=== PATIENT | female | born 1960 | race Caucasian/White ===

== ENCOUNTER → 2017-02-13 | Outpatient (CLI) | payer OTHER ==
[~2017-02-13] MED LIST: CLARITIN 1010 MG/TAB PO; EPA FISH OIL1000 MG PO; TENORMIN 2525 MG/TAB PO
== END ==
LOC: MC.RAD 07:52
DX: Z12.31 Encounter for screening mammogram for malignant neoplasm of breast (principal)

== ENCOUNTER 2017-10-11 13:30 | Day surgery (SDC) | payer OTHER ==
[~2017-10-11] VITALS: Ht 152.4 cm; Wt 78.3 kg
[2017-10-11] MEDS ORDERED: ZYRTEC 10MG10 MG PO (13:45)
[2017-10-11] MEDS ORDERED: LIPITOR 10MG10 MG PO (13:45)
[2017-10-11] MEDS ORDERED: ATIVAN 0.50.5 MG/TAB PO (13:46)
[2017-10-11 13:47] VITALS: BP 156/91; PULSE 86; TEMP 98.5
[2017-10-11 15:30] VITALS: BP 136/84; PULSE 86; TEMP 98.3
[2017-10-11 15:45] VITALS: BP 117/81; PULSE 74
[2017-10-11 16:00] VITALS: BP 118/82; PULSE 71
[2017-10-11 16:15] VITALS: BP 128/87; PULSE 72
[2017-10-11 16:21] VITALS: BP 136/84; PULSE 86
== END 2017-10-11 16:43 | disposition home or self-care (01) ==
LOC: SDCO 13:30
DX: Z12.11 Encounter for screening for malignant neoplasm of colon (principal); Z86.010 Personal history of colon polyps; K57.30 Diverticulosis of large intestine without perforation or abscess without bleeding; R11.2 Nausea with vomiting, unspecified; R19.7 Diarrhea, unspecified; E78.00 Pure hypercholesterolemia, unspecified; D50.9 Iron deficiency anemia, unspecified; I10 Essential (primary) hypertension; E66.9 Obesity, unspecified; Z68.34 Body mass index [BMI] 34.0-34.9, adult; K21.9 Gastro-esophageal reflux disease without esophagitis; Z88.1 Allergy status to other antibiotic agents
CPT/HCPCS: J2250; J2405; J3010

== ENCOUNTER → 2017-12-13 | Outpatient (CLI) | payer OTHER ==
[~2017-12-13] MED LIST changes: +ATIVAN 0.50.5 MG/TAB PO; +LIPITOR 10MG10 MG PO; +ZYRTEC 10MG10 MG PO
== END ==
LOC: COL.RAD 08:04
DX: R19.7 Diarrhea, unspecified (principal); R11.0 Nausea
CPT/HCPCS: A9541

== ENCOUNTER → 2018-03-06 | Outpatient (CLI) | payer OTHER | LOC: MC.RAD 10:28 | DX: Z12.31 Encounter for screening mammogram for malignant neoplasm of breast (principal) ==

== ENCOUNTER → 2019-03-08 | Outpatient (CLI) | payer OTHER | LOC: MC.RAD 07:39 | DX: Z12.31 Encounter for screening mammogram for malignant neoplasm of breast (principal) ==

== ENCOUNTER → 2020-05-28 | Outpatient (CLI) | payer OTHER | LOC: MC.RAD 07:00 | DX: Z12.31 Encounter for screening mammogram for malignant neoplasm of breast (principal) ==

== ENCOUNTER → 2021-07-06 | Outpatient (CLI) | payer OTHER | LOC: MC.RAD 09:15 | DX: Z12.31 Encounter for screening mammogram for malignant neoplasm of breast (principal) ==